=== PATIENT | male | born 1960 | race Caucasian/White ===

== ENCOUNTER 2017-02-14 12:13 | Inpatient (IN) | payer OTHER ==
[~2017-02-14] VITALS: Ht 177.8 cm; Wt 90.0 kg
[~2017-02-14 12:13] MED LIST: ASPIRIN CHEWABL81 MG PO; AUGMENTIN TAB875 MG PO; DIGOXIN125 MCG PO; GLUCOPHAGE 500500 MG PO; IPRAT-ALBUT 0.5-3 ML INH; NEURONTIN 100100 MG PO; SPIRIVA18 MCG INH; SYMBICORT 160-1 INHA INH; SYNTHROID100 MCG PO; XARELTO15 MG PO
[2017-02-14] MEDS ORDERED: LIPITOR TAB 2020 MG PO (14:10)
[2017-02-14] MEDS ORDERED: GLUCOPHAGE 500500 MG PO (14:11)
[2017-02-14] MEDS ORDERED: GUAIFENESIN-CODE5 ML PO (14:11)
[2017-02-14] MEDS ORDERED: OMEGA 3 1,0001 EACH PO (14:12)
[2017-02-14] MEDS ORDERED: NORVASC5 MG PO (14:13)
[2017-02-14] MEDS ORDERED: INTRINSI B12-F1 EACH PO (14:13)
[2017-02-14] MEDS ORDERED: TUSSIN COU15 MG/5 M1 PO (14:14)
[2017-02-14] MEDS ORDERED: ATIVAN1 MG PO (14:15)
[2017-02-14] MEDS ORDERED: ZESTRIL2.5 MG PO (14:15)
[2017-02-15 04:32] LABS: HEMOGLOBIN 11.7 gm/dl (14.0-17.5); RED BLOOD COUNT 4.14 M/UL (4.20-5.50); WHITE BLOOD COUNT 8.3 K/UL (4.5-11.0)
[2017-02-15 05:34] LABS: BUN/CREATININE RATIO 27 (0-10)
[2017-02-15 23:01] LABS: ACINETOBACTER BAUMANNII Not Detected (Negative); CANDIDA ALBICANS Not Detected (Negative); CANDIDA KRUSEI Not Detected (Negative); CANDIDA TROPICALIS Not Detected (Negative); ENTEROCOCCUS Not Detected (Negative); ESCHERICHIA COLI Not Detected (Negative); HAEMOPHILUS INFLUENZAE Not Detected (Negative); KLEBSIELLA OXYTOCA Not Detected (Negative); KLEBSIELLA PNEUMONIAE Not Detected (Negative); KPC-CARBAPENEM-RESISTANCE GENE Not Detected (Negative); PROTEUS Not Detected (Negative); PSEUDOMONAS AERUGINOSA Not Detected (Negative); SERRATIA MARCESANS Not Detected (Negative); STAPHYLOCOCCUS AUREUS Not Detected (Negative); STREP AGALACTIAE (GROUP B) Not Detected (Negative); STREP PYOGENES (GROUP A) Not Detected (Negative); STREPTOCOCCUS Not Detected (Negative); mecA (METHICILLIN RESIST GENE Not Detected (Negative); vanA/B (VANCOMYCIN RESIST GENE Not Detected (Negative)
[2017-02-16 00:38] LABS: STAPHYLOCOCCUS DETECTED (Negative)
== END 2017-02-15 15:10 | disposition other institution (70) | DRG 208 ==
LOC: CCU 12:13
PROVIDERS: ADMIT Internal Medicine Infectious Disease
PROC: 5A1945Z Respiratory Ventilation, 24-96 Consecutive Hours (ICD-10-PCS; principal; 2017-02-14)
DX: J96.01 Acute respiratory failure with hypoxia (principal); J44.1 Chronic obstructive pulmonary disease with (acute) exacerbation; C34.31 Malignant neoplasm of lower lobe, right bronchus or lung; C78.1 Secondary malignant neoplasm of mediastinum; J98.09 Other diseases of bronchus, not elsewhere classified; R59.0 Localized enlarged lymph nodes; J96.02 Acute respiratory failure with hypercapnia; E11.65 Type 2 diabetes mellitus with hyperglycemia; K76.9 Liver disease, unspecified; D69.6 Thrombocytopenia, unspecified; I25.10 Atherosclerotic heart disease of native coronary artery without angina pectoris; E03.9 Hypothyroidism, unspecified; Z86.711 Personal history of pulmonary embolism; Z86.14 Personal history of Methicillin resistant Staphylococcus aureus infection; Z87.01 Personal history of pneumonia (recurrent); Z95.1 Presence of aortocoronary bypass graft; Z79.84 Long term (current) use of oral hypoglycemic drugs; Z79.899 Other long term (current) drug therapy; Z87.891 Personal history of nicotine dependence; Z95.0 Presence of cardiac pacemaker
CPT/HCPCS: 36415; 36600; 71010; 80048; 80076; 81001; 82150; 82803; 82962; 83036; 83735; 84484; 85025; 85610; 85730; 87040; 87070; 87077; 87086; 87150; 87186; 87205; 93005; 93970; 94002; 94003; 94640; A4628; J0696; J2060; J2930; J3370; J7030; J7050; J7070; Q9963